=== PATIENT | female | born 1945 | race Caucasian/White ===

== ENCOUNTER → 2019-02-13 | Day surgery (SDC) | payer OTHER | END | disposition home or self-care (01) | LOC: ADM 02-10 15:30 → AMB-ENDOS 07:50 | DX: D12.7 Benign neoplasm of rectosigmoid junction (principal) ==

== ENCOUNTER 2020-09-12 09:29 | Outpatient (CLI) | payer OTHER | END 2020-09-12 09:34 | disposition home or self-care (01) | LOC: SONOGRAMA 09:29 | PROVIDERS: ATTEND Pathology Anatomic Pathology & Clinical Pathology | DX: D34 Benign neoplasm of thyroid gland (principal); E06.3 Autoimmune thyroiditis; E06.5 Other chronic thyroiditis; E04.8 Other specified nontoxic goiter ==